=== PATIENT | female | born 1995 | race African-American/Black ===

== ENCOUNTER 2018-04-30 15:10 | Emergency (ER) | payer OTHER ==
[~2018-04-30] VITALS: Ht 162.6 cm; Wt 65.8 kg
[2018-04-30] MEDS ORDERED: NORFLEX100 MG PO (17:05)
[2018-04-30] MEDS ORDERED: IBUPROFEN 600600 M1 PO (17:05)
[2018-04-30 17:18] VITALS: BP 128/68
== END 2018-04-30 17:18 | disposition home or self-care (01) ==
LOC: ER 15:10
DX: S16.1XXA Strain of muscle, fascia and tendon at neck level, initial encounter (principal); R51 Headache; J45.909 Unspecified asthma, uncomplicated; V89.2XXA Person injured in unspecified motor-vehicle accident, traffic, initial encounter; Y93.89 Activity, other specified; Y92.89 Other specified places as the place of occurrence of the external cause; Y99.8 Other external cause status